=== PATIENT | male | born 1930 | race Caucasian/White ===

== ENCOUNTER 2017-07-20 10:51 | Emergency (ER) | payer OTHER ==
[~2017-07-20] VITALS: Ht 172.7 cm; Wt 87.2 kg
[~2017-07-20 10:51] MED LIST: ASPIRIN325 MG PO; ASPIRIN81 M1 PO; ATORVASTATIN 20 MG T; ATORVASTATIN CA20 MG PO; GLUCOSAMINE &1 EAC1 PO; LOPRESSOR25 MG; LOSARTAN POTASS50 MG PO; MEN'S ONE DAIL1 EACH PO; METOPROLOL SUCC25 MG PO; NITROSTAT0.4 MG SL
[2017-07-20 14:35] LABS: HEMATOCRIT 39.9 % (38.0-50.0); MCH 33.5 PG (29.0-34.0); MCHC 33.8 G/DL (30.0-36.0); MEAN PLAT.VOLUME 9.6 uM^3 (9.0-12.4); PLATELET COUNT 125 K/uL (156-360); RBC DIS.WIDTH-CV 12.7 % (11.8-14.6); RBC DIS.WIDTH-SD 46.7 % (39-53); RED BLOOD COUNT 4.03 M/uL (4.00-5.50); WHITE BLOOD COUNT 9.7 K/uL (4.1-10.2)
[2017-07-20 14:44] LABS: CHLORIDE 106 mEq/L (99-109); POTASSIUM 4.1 mEq/L (3.7-5.4); SODIUM 137 mEq/L (136-147)
[2017-07-20 14:46] LABS: GLUCOSE 89 mg/dL (70-99)
[2017-07-20 14:47] LABS: ANION GAP 6 MEQ/L (2-14)
[2017-07-20 14:48] LABS: TOTAL BILIRUBIN 1.4 mg/dL (0.0-1.0)
[2017-07-20 14:49] LABS: ALKALINE PHOSPHATASE 63 IU/L (3-129)
[2017-07-20 14:50] LABS: GFR ESTIMATE (CALCULATED) > 59 mL/min/
[2017-07-20 14:51] LABS: UREA NITROGEN (BUN) 19 mg/dL (9-23)
[2017-07-20 14:53] LABS: LIPASE 6 U/L (1.0-51.0)
[2017-07-20 16:09] LABS: ADD MIUA? YES; BILIRUBIN NEGATIVE; BLOOD SMALL; COLOR YELLOW ((YELLOW)); GLUCOSE (STRIP) NEGATIVE; KETONES 5; LEUKOCYTES NEGATIVE; NITRITE NEGATIVE; PROTEIN (STRIP) 100
[2017-07-20 16:19] LABS: BACTERIA NONE SEEN /HPF; EPITHELIAL CELLS RARE /HPF; HYALINE CASTS 0-5 /LPF; MUCUS TRACE /LPF; RED BLOOD CELLS 0-5 /HPF (0-5); WHITE BLOOD CELLS 0-5 /HPF (0-5)
[2017-07-20] MEDS ORDERED: PROVENTIL HFA6.7 GM IH (17:48)
[2017-07-20] MEDS ORDERED: ZITHROMAX Z-PA250 MG PO (17:48)
[2017-07-20 18:03] VITALS: BP 165/98
== END 2017-07-20 18:04 | disposition home or self-care (01) ==
LOC: EME 10:51
PROVIDERS: Nurse Practitioner Family
DX: M54.5 Low back pain (principal); M25.552 Pain in left hip; I71.2 Thoracic aortic aneurysm, without rupture; W01.0XXA Fall on same level from slipping, tripping and stumbling without subsequent striking against object, initial encounter; Y93.E1 Activity, personal bathing and showering; E78.5 Hyperlipidemia, unspecified; I10 Essential (primary) hypertension; I25.2 Old myocardial infarction; F32.9 Major depressive disorder, single episode, unspecified; Z95.5 Presence of coronary angioplasty implant and graft; Z79.82 Long term (current) use of aspirin; Z87.891 Personal history of nicotine dependence
CPT/HCPCS: 70450; 71260; 72129; 73502; 74177; 80053; 81003; 83690; 85027; 93005; 99281; 99285

== ENCOUNTER 2018-03-13 20:08 | Inpatient (IN) | payer OTHER ==
[~2018-03-13] VITALS: Ht 182.9 cm; Wt 110.6 kg
[~2018-03-13 20:08] MED LIST changes: +PROVENTIL HFA6.7 GM IH; +ZITHROMAX Z-PA250 MG PO
[2018-03-13 20:44] LABS: HEMATOCRIT 37.8 % (38.0-50.0); HEMOGLOBIN 13.2 G/DL (12.5-16.6); MCH 33.6 PG (29.0-34.0); MCHC 34.9 G/DL (30.0-36.0); MCV 96.2 FL (86-99); PLATELET COUNT 128 K/uL (156-360); RBC DIS.WIDTH-CV 13.3 % (11.8-14.6); RBC DIS.WIDTH-SD 47.7 % (39-53); RED BLOOD COUNT 3.93 M/uL (4.00-5.50); WHITE BLOOD COUNT 10.1 K/uL (4.1-10.2)
[2018-03-13 20:56] LABS: CHLORIDE 99 mEq/L (99-109); POTASSIUM 3.8 mEq/L (3.7-5.4); SODIUM 135 mEq/L (136-147)
[2018-03-13 20:58] LABS: GLUCOSE 120 mg/dL (70-99)
[2018-03-13 21:02] LABS: CREATININE 1.5 mg/dL (0.6-1.3); GFR ESTIMATE (CALCULATED) 47 mL/min/ (58.99-99999); UREA NITROGEN (BUN) 42 mg/dL (9-23)
[2018-03-13 21:08] LABS: TROP-I INTERPRETATION NEGATIVE; TROPONIN-I 0.02 ng/mL (0.0-0.30)
[2018-03-13 21:14] LABS: MAGNESIUM 1.8 mg/dL (1.3-2.7)
[2018-03-13] MEDS ORDERED: DOXYCYCLINE MO100 MG PO (21:48)
[2018-03-13] MEDS ORDERED: ANTIVERT25 MG PO (21:48)
[2018-03-13] MEDS ORDERED: ESCITALOPRAM OX10 MG PO (21:50)
[2018-03-13] MEDS ORDERED: CARBIDOPA/LEVO1 EACH PO (21:51)
[2018-03-13] MEDS ORDERED: PRIMIDONE50 MG PO (21:53)
[2018-03-13] MEDS ORDERED: NATURAL PSYLL1044 GM PO (22:10)
[2018-03-14] VITALS (7 sets, daily range): BP systolic 123–144; BP diastolic 71–88
[2018-03-14 05:57] LABS: HEMATOCRIT 35.9 % (38.0-50.0); HEMOGLOBIN 12.1 G/DL (12.5-16.6); MCHC 33.7 G/DL (30.0-36.0); MCV 97.8 FL (86-99); PLATELET COUNT 114 K/uL (156-360); RBC DIS.WIDTH-CV 13.5 % (11.8-14.6); RBC DIS.WIDTH-SD 49.1 % (39-53); RED BLOOD COUNT 3.67 M/uL (4.00-5.50); WHITE BLOOD COUNT 6.9 K/uL (4.1-10.2)
[2018-03-14 06:24] LABS: CHLORIDE 106 MEQ/L (99-109); CREATININE 1.3 MG/DL (0.6-1.3); GFR ESTIMATE (CALCULATED) 56 mL/min/ (58.99-99999); GLUCOSE 155 mg/dL (70-99); POTASSIUM 3.4 MEQ/L (3.7-5.4); SODIUM 137 MEQ/L (136-147); UREA NITROGEN (BUN) 35 mg/dL (9-23)
[2018-03-14 06:31] LABS: BASOPHIL (%) 0.3 % (0-1); EOSINOPHIL (%) 0 % (0-5); IMMATURE GRANULOCYTE (%) 0.7 % (0.0-0.7); LYMPHOCYTE (%) 1.9 % (15-42); LYMPHOCYTE COUNT 0.1 K/uL (1.0-2.8); MONOCYTE (%) 4.9 % (3-12); MONOCYTE COUNT 0.3 K/uL (0-0.8); NEUTROPHIL (%) 92.2 % (45-76); NEUTROPHIL COUNT 6.3 K/uL (1.8-6.4)
[2018-03-14 09:54] LABS: TROP-I INTERPRETATION NEGATIVE; TROPONIN-I 0.02 ng/mL (0.0-0.30)
[2018-03-14 18:22] LABS: APPEARANCE SL.HAZY ((CLEAR)); BILIRUBIN NEGATIVE; BLOOD SMALL; COLOR YELLOW ((YELLOW)); GLUCOSE (STRIP) 150; KETONES NEGATIVE; LEUKOCYTES NEGATIVE; NITRITE NEGATIVE; PROTEIN (STRIP) 100; SPECIFIC GRAVITY 1.026 (1.000-1.030); UROBILINOGEN 0.2 MG/DL (0.2-1.0)
[2018-03-14 18:40] LABS: BACTERIA RARE /HPF; EPITHELIAL CELLS RARE /HPF; MUCUS TRACE /LPF; RED BLOOD CELLS 0-5 /HPF (0-5); UCUL ADDED? NO; WHITE BLOOD CELLS 0-5 /HPF (0-5)
[2018-03-15] VITALS (7 sets, daily range): BP systolic 120–167; BP diastolic 79–93
[2018-03-15 09:00] LABS: HEMATOCRIT 34.8 % (38.0-50.0); HEMOGLOBIN 11.9 G/DL (12.5-16.6); MCHC 34.2 G/DL (30.0-36.0); MCV 96.4 FL (86-99); PLATELET COUNT 133 K/uL (156-360); RBC DIS.WIDTH-CV 13.3 % (11.8-14.6); RBC DIS.WIDTH-SD 47.6 % (39-53); RED BLOOD COUNT 3.61 M/uL (4.00-5.50); WHITE BLOOD COUNT 9.2 K/uL (4.1-10.2)
[2018-03-15 09:24] LABS: CHLORIDE 104 MEQ/L (99-109); CREATININE 1.2 MG/DL (0.6-1.3); GFR ESTIMATE (CALCULATED) > 59 mL/min/ (58.99-99999); GLUCOSE 126 mg/dL (70-99); POTASSIUM 3.9 MEQ/L (3.7-5.4); SODIUM 136 MEQ/L (136-147); UREA NITROGEN (BUN) 32 mg/dL (9-23)
[2018-03-16] VITALS (7 sets, daily range): BP systolic 128–154; BP diastolic 76–92
[2018-03-16 05:26] LABS: BASOPHIL (%) 0.2 % (0-1); EOSINOPHIL (%) 0 % (0-5); HEMATOCRIT 36.8 % (38.0-50.0); HEMOGLOBIN 12.7 G/DL (12.5-16.6); IMMATURE GRANULOCYTE (%) 1.5 % (0.0-0.7); LYMPHOCYTE (%) 3.6 % (15-42); LYMPHOCYTE COUNT 0.3 K/uL (1.0-2.8); MCH 33.2 PG (29.0-34.0); MCHC 34.5 G/DL (30.0-36.0); MCV 96.1 FL (86-99); MONOCYTE (%) 5.5 % (3-12); MONOCYTE COUNT 0.5 K/uL (0-0.8); NEUTROPHIL (%) 89.2 % (45-76); NEUTROPHIL COUNT 7.9 K/uL (1.8-6.4); PLATELET COUNT 160 K/uL (156-360); RBC DIS.WIDTH-CV 13.4 % (11.8-14.6); RBC DIS.WIDTH-SD 47.8 % (39-53); RED BLOOD COUNT 3.83 M/uL (4.00-5.50); WHITE BLOOD COUNT 8.9 K/uL (4.1-10.2)
[2018-03-16 05:51] LABS: ALBUMIN 2.6 G/DL (3.2-4.8); ALKALINE PHOSPHATASE 46 IU/L (3-129); ALT (GPT) 37 IU/L (3-49); AST (GOT) 102 IU/L (2-34); CHLORIDE 104 MEQ/L (99-109); CREATININE 1.2 MG/DL (0.6-1.3); GFR ESTIMATE (CALCULATED) > 59 mL/min/ (58.99-99999); GLUCOSE 128 mg/dL (70-99); POTASSIUM 4.2 MEQ/L (3.7-5.4); SODIUM 135 MEQ/L (136-147); TOTAL BILIRUBIN 0.5 MG/DL (0.0-1.0); TOTAL PROTEIN 5.4 G/DL (6.4-8.3); UREA NITROGEN (BUN) 35 mg/dL (9-23)
[2018-03-17] VITALS (8 sets, daily range): BP systolic 113–170; BP diastolic 78–108
[2018-03-17 05:14] LABS: DEVICE HHFNC; FI02 100 %; O2 FLOW 50 L/MIN; PCO2 33 mm Hg (35-45); SITE LR; TOTAL RESP RATE 24 resp/min; pH 7.44 (7.35-7.45)
[2018-03-17 05:15] LABS: BASE EXCESS -1.1 mEq/L (-3 to +3); BICARBONATE 22.4 mEq/L (22-26); CARBOXY HGB 1.6 % (0-5); COMMENTS - BLOOD GASES C+; METHEMOGLOBIN 1.1 % (0-1.5); PO2 48 mm Hg (80-100)
[2018-03-17 10:20] LABS: CHLORIDE 102 MEQ/L (99-109); CREATININE 1.1 MG/DL (0.6-1.3); GFR ESTIMATE (CALCULATED) > 59 mL/min/ (58.99-99999); GLUCOSE 170 mg/dL (70-99); POTASSIUM 4.3 MEQ/L (3.7-5.4); SODIUM 135 MEQ/L (136-147); UREA NITROGEN (BUN) 34 mg/dL (9-23)
[2018-03-18 03:30] VITALS: BP 141/75
[2018-03-18 07:54] VITALS: BP 164/95
[2018-03-18 13:12] VITALS: BP 140/92
[2018-03-18 15:51] LABS: COMMENTS - BLOOD GASES A+C+; DEVICE HEATED HIGH FLOWNC; FI02 100 %; O2 FLOW 55 L/MIN; PCO2 34 mm Hg (35-45); PO2 61 mm Hg (80-100); SITE LR; TOTAL RESP RATE 32 resp/min; pH 7.49 (7.35-7.45)
[2018-03-18 15:52] LABS: BASE EXCESS 2.8 mEq/L (-3 to +3); BICARBONATE 25.9 mEq/L (22-26); O2 SATURATION (CALCULATED) 94.4 % (95-99)
[2018-03-18 17:31] VITALS: BP 133/78
[2018-03-18 19:56] VITALS: BP 164/88
[2018-03-18 23:08] VITALS: BP 160/77
[2018-03-19] VITALS (7 sets, daily range): BP systolic 103–165; BP diastolic 65–99
[2018-03-19 10:03] LABS: CHLORIDE 104 MEQ/L (99-109); GFR ESTIMATE (CALCULATED) > 59 mL/min/ (58.99-99999); GLUCOSE 153 mg/dL (70-99); POTASSIUM 4.5 MEQ/L (3.7-5.4); SODIUM 137 MEQ/L (136-147); UREA NITROGEN (BUN) 36 mg/dL (9-23)
[2018-03-20 08:00] VITALS: BP 132/92
== END 2018-03-20 13:27 | DRG 189 ==
LOC: EME 20:08 → 5SOUTH 21:26 → 4EAST 21:26 → EDOF 21:26 → ENRESERV 21:28 → 5SOUTH 23:21 → ENRESERV 03-15 09:55 → 4EAST 03-15 11:35 → ENRESERV 03-20 09:54 → CANRESERV 03-20 12:52 → ENRESERV 03-20 12:52 → 4EAST 03-20 13:27
PROVIDERS: Emergency Medicine; Family Medicine; Hospitalist; Internal Medicine; Nurse Practitioner Family
DX: J96.01 Acute respiratory failure with hypoxia (principal); J18.9 Pneumonia, unspecified organism; N17.9 Acute kidney failure, unspecified; E87.2 Acidosis; E86.0 Dehydration; E87.1 Hypo-osmolality and hyponatremia; D69.6 Thrombocytopenia, unspecified; I95.9 Hypotension, unspecified; I48.0 Paroxysmal atrial fibrillation; F05 Delirium due to known physiological condition; I27.20 Pulmonary hypertension, unspecified; G62.9 Polyneuropathy, unspecified; G20 Parkinson's disease; I35.0 Nonrheumatic aortic (valve) stenosis; I34.0 Nonrheumatic mitral (valve) insufficiency; I10 Essential (primary) hypertension; I70.0 Atherosclerosis of aorta; I25.10 Atherosclerotic heart disease of native coronary artery without angina pectoris; E78.5 Hyperlipidemia, unspecified; G47.30 Sleep apnea, unspecified; L40.9 Psoriasis, unspecified; N40.0 Benign prostatic hyperplasia without lower urinary tract symptoms; F32.9 Major depressive disorder, single episode, unspecified; M19.90 Unspecified osteoarthritis, unspecified site; H91.90 Unspecified hearing loss, unspecified ear; Z51.5 Encounter for palliative care; Z66 Do not resuscitate; Z78.1 Physical restraint status; I25.2 Old myocardial infarction; Z95.5 Presence of coronary angioplasty implant and graft; Z87.891 Personal history of nicotine dependence
CPT/HCPCS: 36600; 71045; 71046; 71250; 80048; 80053; 80162; 80202; 81003; 82803; 83605; 83735; 83880; 84145 90; 84443; 84484; 85025; 85027; 87040; 87449; 87641; 92526 GN; 92610 GN; 93005; 93306; 94640; 94640 76; 94667; 94668; 94799; 99202; 99281; 99285; J0456; J0692; J0696; J1160; J1200; J1630; J1644; J1940; J2060; J2270; J2543; J2920; J2930; J3010; J3370; J7030; J7050